=== PATIENT | female | born 1985 | race Caucasian/White ===

== ENCOUNTER 2023-05-05 17:27 | Emergency (ER) | payer BC, MEDICARE ==
[~2023-05-05] VITALS: Ht 175.3 cm; Wt 90.9 kg
[~2023-05-05 17:27] MED LIST: AMBIEN 10MG10 MG PO; AMOXICILLIN 50500 MG PO; CELEXA40 MG PO; INDERAL 20MG20 MG PO; PERCOCET 325 MG1 TA2 PO; ROXICODONE 55 MG/TAB PO; VITAMIN B COMPL1 SGL; VITAMIN D250 MCG PO
[2023-05-05 17:32] VITALS: TEMP 98.1
[2023-05-05 18:13] LABS: BASO % 0.4 % (0.0-2.0); EOS # 0.2 K/mm3 (0.0-0.7); EOS % 3.1 % (0.0-4.0); GRAN # 2.8 K/mm3 (1.4-6.5); GRAN % 50.5 % (42.2-75.2); LYMPH # 2.1 K/mm3 (1.2-3.4); LYMPH % 37.7 % (20.0-51.0); MEAN CELL VOLUME 96 fl (80.0-100.0); MEAN CORPUSCULAR HGB CONC 32 g/dl (33.0-37.0); MEAN PLATELET VOLUME 9.9 fl (7.4-10.4); MONO # 0.4 K/mm3 (0.1-0.6); MONO % 8.1 % (1.7-9.3); PLATELET COUNT 324 K/mm3 (130-400); RED BLOOD COUNT 3.06 M/mm3 (4.10-5.30); REDCELL DISTRIBUTION WIDTH-CV 12.7 % (11.5-14.5)
[2023-05-05 18:14] LABS: HEMATOCRIT 29.3 % (37.0-47.0); HEMOGLOBIN 9.4 g/dl (12.5-16.0); MEAN CORPUSCULAR HEMOGLOBIN 31 pg (27-31)
[2023-05-05 18:26] LABS: ALBUMIN 2.8 gm/dL (3.5-5.0); BILIRUBIN,TOTAL 0.4 mg/dL (0.2-1.2); CALCIUM 8.7 mg/dL (8.4-10.2); CREATININE, serum 0.64 mg/dL (0.57-1.11); TOTAL PROTEIN 6.5 gm/dL (6.2-8.1)
[2023-05-05 18:32] LABS: TROPONIN-I 0.011 ng/mL (0.00-0.033)
[2023-05-05 19:06] VITALS: BP 129/87; PULSE 50
[2023-05-05 19:26] LABS: COLLECTION METHOD CLEAN CATCH
[2023-05-05 19:43] LABS: URINE APPEARANCE Hazy (CLEAR/HAZY); URINE BLOOD 3+ (NEGATIVE); URINE COLOR Yellow (YELLOW); URINE GLUCOSE Negative (NEGATIVE); URINE KETONE TRACE (NEGATIVE); URINE NITRATE Negative (NEGATIVE); URINE PROTEIN(semi-quant) TRACE (NEGATIVE); URINE RBC 20-50 /hpf (0-2); URINE UROBILINOGEN 0.2 E.U/dL (0.2-1.0)
== END 2023-05-05 19:27 | disposition home or self-care (01) ==
LOC: COL.ER 17:27
PROVIDERS: Nurse Practitioner
DX: O99.893 Other specified diseases and conditions complicating puerperium (principal); Z87.891 Personal history of nicotine dependence

== ENCOUNTER 2023-05-08 17:48 | Observation (INO) | payer BC, MEDICARE ==
[~2023-05-08] VITALS: Ht 175.3 cm; Wt 90.9 kg
[2023-05-08 18:19] LABS: BASO % 0.4 % (0.0-2.0); EOS # 0.3 K/mm3 (0.0-0.7); EOS % 3.7 % (0.0-4.0); GRAN # 3.9 K/mm3 (1.4-6.5); HEMOGLOBIN 10.5 g/dl (12.5-16.0); LYMPH # 2.3 K/mm3 (1.2-3.4); LYMPH % 32.3 % (20.0-51.0); MEAN CELL VOLUME 97 fl (80.0-100.0); MEAN CORPUSCULAR HEMOGLOBIN 31 pg (27-31); MEAN CORPUSCULAR HGB CONC 32 g/dl (33.0-37.0); MEAN PLATELET VOLUME 9.6 fl (7.4-10.4); MONO # 0.5 K/mm3 (0.1-0.6); MONO % 7.5 % (1.7-9.3); PLATELET COUNT 375 K/mm3 (130-400); RED BLOOD COUNT 3.41 M/mm3 (4.10-5.30); REDCELL DISTRIBUTION WIDTH-CV 12.5 % (11.5-14.5)
[2023-05-08 18:28] LABS: INR 1.1 (0.8-3.0); PROTHROMBIN TIME 11.8 SECONDS (9.7-12.8)
[2023-05-08 18:30] LABS: PARTIAL THROMBOPLASTIN TIME 31.8 SECONDS (26.0-37.0)
[2023-05-08 18:31] LABS: COLLECTION METHOD CLEAN CATCH
[2023-05-08 18:38] LABS: ALANINE AMINOTRANSFERASE 21 U/L (0-55); ALBUMIN 3.1 gm/dL (3.5-5.0); ALKALINE PHOSPHATASE 114 U/L (40-150); ANION GAP 12 mmol/L (7-16); AST,SGOT 23 U/L (5-34); BILIRUBIN,TOTAL 0.5 mg/dL (0.2-1.2); BLOOD UREA NITROGEN 17 mg/dL (7-19); CALCIUM 8.6 mg/dL (8.4-10.2); CARBON DIOXIDE 21 mmol/L (22-29); CHLORIDE 111 mmol/L (98-107); CREATININE, serum 0.75 mg/dL (0.57-1.11); GLUCOSE 83 mg/dL (70-99); LACTATE DEHYDROGENASE 280 U/L (125-220); MAGNESIUM 1.9 mg/dL (1.6-2.6); POTASSIUM 3.8 mmol/L (3.5-4.5); SODIUM 144 mmol/L (136-145); TOTAL PROTEIN 6.6 gm/dL (6.2-8.1)
[2023-05-08 18:47] LABS: TROPONIN-I < 0.010 ng/mL (0.00-0.033)
[2023-05-08 18:52] LABS: SQUAMOUS EPITHELIAL 0-2 /hpf (0-10); URINE APPEARANCE Clear (CLEAR/HAZY); URINE BLOOD TRACE-INTACT (NEGATIVE); URINE COLOR Yellow (YELLOW); URINE GLUCOSE Negative (NEGATIVE); URINE KETONE Negative (NEGATIVE); URINE NITRATE Negative (NEGATIVE); URINE PROTEIN(semi-quant) Negative (NEGATIVE); URINE RBC 0-2 /hpf (0-2); URINE UROBILINOGEN 0.2 E.U/dL (0.2-1.0)
[2023-05-08 18:53] LABS: URINE BACTERIA None Seen /hpf (NONE SEEN)
--- NOTE | 2023-05-08 20:25 | NUR ---
This RN discussed with Dr Owens about if pt needs to be on I/O and keeping track of her output. Dr Owens tells this RN that pt does not need I/O at this time. I also discussed pt IV access and Dr Owens tells this RN that pt does not need to have an IV and it can be taken out. If pt needs another IV placed it can be done tomorrow if necessary. Dr Owens informs this RN that she is placing orders at this time and to just monitor vitals and the ECHO and venous doppler is ordered for tomorrow.
[2023-05-08 21:00] VITALS: BP 138/79; PULSE 48; TEMP 97.9
--- NOTE | 2023-05-08 21:00 | NUR ---
IV access removed at this time per pt request and verbal order received from Dr Owens to remove IV access. 2x2, tape and pressure applied. Pt tolerated well.
--- NOTE | 2023-05-08 21:00 | NUR ---
Pt oxygen saturation at this time is 98% on room air.
[2023-05-08 23:20] VITALS: BP 142/82; PULSE 70; TEMP 98
--- NOTE | 2023-05-08 23:20 | NUR ---
Pt oxygen saturation is 96% on room air.
[2023-05-09] VITALS (7 sets, daily range): BP systolic 119–134; BP diastolic 70–84; PULSE 57–94; TEMP 97.6–98.9
--- NOTE | 2023-05-09 02:00 | NUR ---
Pt reports to this RN that she still has a very intense headache. RN obtains vitals at this time, informs pt that I do not have more pain medication that I can give her. This RN asks pt about how much caffeine pt consumes and pt tells this RN she drinks one cup of coffee every morning and that she had her cup yesterday morning. RN does place a cold washcloth on pt forehead and back of her neck to try and relieve some of her headache. Pt resting as RN leaves the room.
--- NOTE | 2023-05-09 02:45 | NUR ---
Oxygen saturation is 98% on room air at this time.
--- NOTE | 2023-05-09 04:35 | NUR ---
Oxygen saturation is 97% on room air at this time.
[2023-05-09 06:39] LABS: BASO % 0.5 % (0.0-2.0); EOS # 0.2 K/mm3 (0.0-0.7); EOS % 3.8 % (0.0-4.0); GRAN # 3.2 K/mm3 (1.4-6.5); GRAN % 55.1 % (42.2-75.2); HEMOGLOBIN 10.1 g/dl (12.5-16.0); LYMPH # 1.9 K/mm3 (1.2-3.4); LYMPH % 32.6 % (20.0-51.0); MEAN CORPUSCULAR HEMOGLOBIN 31 pg (27-31); MEAN CORPUSCULAR HGB CONC 33 g/dl (33.0-37.0); MEAN PLATELET VOLUME 9.3 fl (7.4-10.4); MONO # 0.5 K/mm3 (0.1-0.6); MONO % 7.8 % (1.7-9.3); PLATELET COUNT 352 K/mm3 (130-400); RED BLOOD COUNT 3.31 M/mm3 (4.10-5.30); REDCELL DISTRIBUTION WIDTH-CV 12.4 % (11.5-14.5)
[2023-05-09 06:40] LABS: HEMATOCRIT 30.5 % (37.0-47.0); MEAN CELL VOLUME 92 fl (80.0-100.0)
[2023-05-09 07:03] LABS: ALBUMIN 2.8 gm/dL (3.5-5.0); BILIRUBIN,TOTAL 0.7 mg/dL (0.2-1.2); CALCIUM 8.5 mg/dL (8.4-10.2); CREATININE, serum 0.62 mg/dL (0.57-1.11); POTASSIUM 3.8 mmol/L (3.5-4.5); TOTAL PROTEIN 5.9 gm/dL (6.2-8.1)
--- NOTE | 2023-05-09 09:45 | NUR ---
Follow-up visit; Parents thanked Flipping Machine Operator for looking in on them since they have been readmitted. Family doing well. Flipping Machine Operator offered God's blessings.
--- NOTE | 2023-05-09 10:40 | NUR ---
96% O2 ON VITAL SIGNS
--- NOTE | 2023-05-09 13:00 | NUR ---
O2 SATURATION 97%
--- NOTE | 2023-05-09 15:05 | NUR ---
DR LUJAN ON UNIT. NOTIFIED ABOUT D DIMER RESULT AND DR GREEN PHONE CALL.
--- NOTE | 2023-05-09 15:51 | NUR ---
DR LUJAN ORDER FOR THIS RN TO GRAB BLOOD PRESSURES ON UPPER LEFT AND RIGHT EXTREMITY TO COMPARE. RIGHT ARM 121/74. LEFT ARM 119/70. O2 SATURATION AT THIS TIME WHILE ON ROOM AIR 985
[2023-05-09] MEDS ORDERED: PROCARDIA XL 6060 MG PO (16:02)
[2023-05-09] MEDS ORDERED: ROXICODONE 55 MG/TAB PO (16:03)
[2023-05-09] MEDS ORDERED: TYLENOL 325MG325 MG PO (16:03)
--- NOTE | 2023-05-09 16:29 | NUR ---
THIS RN TALKS TO CT NURSE. NURSE REQUESTS FOR THIS RN TO GET IV PLACEMENT AND CALL HER BACK.
== END 2023-05-09 18:50 | disposition home or self-care (01) ==
LOC: COL.ER 17:48 → OB 19:27
PROVIDERS: Emergency Medicine; Obstetrics & Gynecology; ADMIT Obstetrics & Gynecology
DX: O99.893 Other specified diseases and conditions complicating puerperium (principal); O16.5 Unspecified maternal hypertension, complicating the puerperium; R00.1 Bradycardia, unspecified; O90.89 Other complications of the puerperium, not elsewhere classified; M79.89 Other specified soft tissue disorders; R79.0 Abnormal level of blood mineral
CPT/HCPCS: G0378; J0360; Q9967

== ENCOUNTER 2023-11-27 15:01 | Emergency (ER) | payer BC ==
[~2023-11-27] VITALS: Ht 175.3 cm; Wt 78.2 kg
[~2023-11-27 15:01] MED LIST changes: +ATARAX 25MG25 MG/TAB PO; +MULTIPLE VITAMI1 CAP PO; +PROBIOTIC BLEN1 EACH PO; +PROCARDIA XL 6060 MG PO; +TYLENOL 325MG325 MG PO; +URSO250 MG PO; +VITAMIN B11000 MCG/M IM; +VITAMIN D31000 I1 PO
[2023-11-27 15:07] VITALS: TEMP 98.2
[2023-11-27 17:29] LABS: COLLECTION METHOD CLEAN CATCH
[2023-11-27] MEDS ORDERED: NS 1,000 ML IV ONE (17:30)
[2023-11-27] MEDS ORDERED: Morphine 4 MG/ML VIAL IV ONE (17:30)
[2023-11-27] MEDS ORDERED: diphenhydrAMINE 50 MG/ML 1 ML VIAL IV ONE (17:30)
[2023-11-27 17:33] LABS: PH 5.5 (5.0-8.5); URINE APPEARANCE CLEAR (CLEAR/HAZY); URINE BLOOD NEGATIVE (NEGATIVE); URINE COLOR YELLOW (YELLOW); URINE GLUCOSE NEGATIVE (NEGATIVE); URINE KETONE 1+ (NEGATIVE); URINE NITRATE NEGATIVE (NEGATIVE); URINE PROTEIN(semi-quant) NEGATIVE (NEGATIVE)
[2023-11-27 17:36] LABS: BASO # 0.1 K/mm3 (0.0-0.2); BASO % 0.8 % (0.0-2.0); EOS # 0.2 K/mm3 (0.0-0.7); EOS % 3.8 % (0.0-4.0); GRAN # 2.8 K/mm3 (1.4-6.5); GRAN % 43.6 % (42.2-75.2); HEMATOCRIT 39.4 % (37.0-47.0); HEMOGLOBIN 13.3 g/dl (12.5-16.0); LYMPH # 2.9 K/mm3 (1.2-3.4); LYMPH % 45.6 % (20.0-51.0); MEAN CELL VOLUME 91 fl (80.0-100.0); MEAN CORPUSCULAR HEMOGLOBIN 31 pg (27-31); MEAN CORPUSCULAR HGB CONC 34 g/dl (33.0-37.0); MEAN PLATELET VOLUME 9.4 fl (7.4-10.4); MONO # 0.4 K/mm3 (0.1-0.6); PLATELET COUNT 295 K/mm3 (130-400); RED BLOOD COUNT 4.31 M/mm3 (4.10-5.30); REDCELL DISTRIBUTION WIDTH-CV 12.8 % (11.5-14.5)
[2023-11-27 17:59] LABS: ALBUMIN 4.1 g/dL (3.5-5.0); BILIRUBIN,TOTAL 0.8 mg/dL (0.2-1.2); C-REACTIVE PROTEIN 0.21 mg/dL (0.00-0.50); CALCIUM 9.6 mg/dL (8.4-10.2); CREATININE, serum 0.76 mg/dL (0.57-1.11); POTASSIUM 3.8 mEq/L (3.5-4.5); TOTAL PROTEIN 7.3 g/dl (6.2-8.1)
[2023-11-27] MEDS ORDERED: Iohexol 300 - 100 ML VIAL IV ONE (19:02)
[2023-11-27] MEDS ORDERED: NS 100 ML IV SCH (19:03)
[2023-11-27] MEDS ORDERED: Home oxyCODONE/Acetaminophen 5/325 MG #4 TAB/PACK PO ONE (19:30)
[2023-11-27 19:46] VITALS: BP 101/63; PULSE 58
== END 2023-11-27 19:47 | disposition home or self-care (01) ==
LOC: COL.ER 15:01
PROVIDERS: Nurse Practitioner
DX: R10.32 Left lower quadrant pain (principal); R10.12 Left upper quadrant pain
CPT/HCPCS: J1200; J2270; J7030; Q9967

== ENCOUNTER 2024-05-06 17:25 | Emergency (ER) | payer BC ==
[~2024-05-06] VITALS: Ht 170.2 cm; Wt 78.2 kg
[2024-05-06 17:33] VITALS: TEMP 98.6
[2024-05-06 18:57] LABS: BASO % 0.4 % (0.0-2.0); EOS # 0.2 K/mm3 (0.0-0.7); EOS % 2.2 % (0.0-4.0); GRAN # 5.8 K/mm3 (1.4-6.5); GRAN % 63.4 % (42.2-75.2); HEMATOCRIT 46.3 % (37.0-47.0); HEMOGLOBIN 15.7 g/dl (12.5-16.0); LYMPH # 2.6 K/mm3 (1.2-3.4); LYMPH % 28.6 % (20.0-51.0); MEAN CELL VOLUME 91 fl (80.0-100.0); MEAN CORPUSCULAR HEMOGLOBIN 31 pg (27-31); MEAN CORPUSCULAR HGB CONC 34 g/dl (33.0-37.0); MEAN PLATELET VOLUME 9.5 fl (7.4-10.4); MONO # 0.5 K/mm3 (0.1-0.6); MONO % 5.1 % (1.7-9.3); PLATELET COUNT 334 K/mm3 (130-400); RED BLOOD COUNT 5.08 M/mm3 (4.10-5.30); REDCELL DISTRIBUTION WIDTH-CV 12.8 % (11.5-14.5)
[2024-05-06] MEDS ORDERED: Ketorolac 30 MG/ML VIAL IV ONE (19:15)
[2024-05-06] MEDS ORDERED: NS 1,000 ML IV ONE (19:15)
[2024-05-06 19:17] LABS: ALBUMIN 4.5 g/dL (3.5-5.0); BILIRUBIN,TOTAL 0.5 mg/dL (0.2-1.2); CALCIUM 9.3 mg/dL (8.4-10.2); CREATININE, serum 0.74 mg/dL (0.57-1.11); POTASSIUM 3.6 mEq/L (3.5-4.5); TOTAL PROTEIN 7.9 g/dl (6.2-8.1)
[2024-05-06 20:14] LABS: COLLECTION METHOD CLEAN CATCH
[2024-05-06 20:17] LABS: PH 5.5 (5.0-8.5); URINE APPEARANCE CLEAR (CLEAR/HAZY); URINE BLOOD NEGATIVE (NEGATIVE); URINE COLOR Dark Yellow (YELLOW); URINE GLUCOSE NEGATIVE (NEGATIVE); URINE KETONE 1+ (NEGATIVE); URINE NITRATE NEGATIVE (NEGATIVE); URINE PROTEIN(semi-quant) NEGATIVE (NEGATIVE); URINE UROBILINOGEN 0.2 E.U/dL (0.2-1.0)
[2024-05-06 20:35] VITALS: BP 108/70; PULSE 64
== END 2024-05-06 20:38 | disposition home or self-care (01) ==
LOC: COL.ER 17:25
PROVIDERS: Nurse Practitioner Primary Care
DX: R10.9 Unspecified abdominal pain (principal); R11.2 Nausea with vomiting, unspecified
CPT/HCPCS: J1885; J7030